=== PATIENT | female | born 1995 | race Hispanic/Latino ===

== ENCOUNTER 2017-10-05 12:48 | Emergency (ER) | payer OTHER ==
[2017-10-05 13:32] VITALS: O2SAT 99
[2017-10-05] MEDS ORDERED: Sodium Chloride 0.9% 1,000 ML IV STA (14:15)
[2017-10-05] MEDS ORDERED: DiphenhydrAMINE 50 mg/ml Inj IVP STA (14:16)
--- NOTE | 2017-10-05 14:20 | ED PDOC ---
HPI: Headache Time Seen by Provider: 10/05/17 14:17 Chief Complaint (Nursing): Headache Chief Complaint (Provider): Headache History Per: Patient History/Exam Limitations: no limitations Onset/Duration Of Symptoms: Days (x7) Current Symptoms Are (Timing): Still Present Associated Symptoms: Photophobia, Nausea. denies: Vomiting Additional Complaint(s): 22 year old female with a PMHx of migraines presents to the ED complaining of left sided headache associated with photophobia, hypersensitivity to sound, and intermittent nausea. Denies vomiting, fever, and history of head injury. PMD: Derek Hwang Past Medical History Reviewed: Historical Data, Nursing Documentation, Vital Signs Vital Signs: Last Vital Signs Temp Pulse 90 10/05/17 13:27 Resp 18 10/05/17 13:27 BP 138/88 10/05/17 13:27 Pulse Ox 99 10/05/17 13:27 - Medical History PMH: Migraine - Surgical History Surgical History: No Surg Hx - Family History Family History: States: Unknown Family Hx - Home Medications Home Medications: Ambulatory Orders Medication Instructions Recorded Citalopram [celeXA] 40 mg PO DAILY 09/10/17 Topiramate [Topamax] 50 mg PO DAILY 09/10/17 SUMAtriptan [Imitrex] 25 mg PO DAILY #6 tab 10/05/17 - Allergies Allergies/Adverse Reactions: Allergies Allergy/AdvReac Type Severity Reaction Status Date / Time amoxicillin [From Augmentin] Allergy Verified 09/10/17 21:30 clarithromycin [From Biaxin] Allergy Verified 09/10/17 21:30 clavulanic acid Allergy Verified 09/10/17 21:30 [From Augmentin] Review of Systems ROS Statement: Except As Marked, All Systems Reviewed And Found Negative Constitutional: Positive for: Other. Negative for: Fever Gastrointestinal: Positive for: Nausea (intermittent ). Negative for: Vomiting Neurological: Positive for: Headache, Other (photophobia, hypersensitivity to light) Physical Exam - Reviewed Nursing Documentation Reviewed: Yes Vital Signs Reviewed: Yes - Physical Exam Appears: Positive for: Non-toxic, No Acute Distress Head Exam: Positive for: ATRAUMATIC, NORMAL INSPECTION (no temporal tenderness) , NORMOCEPHALIC Skin: Positive for: Normal Color, Warm, Dry Eye Exam: Positive for: Normal appearance, EOMI, PERRL ENT: Positive for: Normal ENT Inspection Neck: Positive for: Normal, Supple Cardiovascular/Chest: Positive for: Regular Rate, Rhythm. Negative for: Murmur Respiratory: Positive for: Normal Breath Sounds. Negative for: Respiratory Distress Gastrointestinal/Abdominal: Positive for: Normal Exam, Soft. Negative for: Tenderness Back: Positive for: Normal Inspection. Negative for: L CVA Tenderness, R CVA Tenderness, Vertebral Tenderness Extremity: Positive for: Normal ROM. Negative for: Pedal Edema, Deformity Neurologic/Psych: Positive for: Alert (awake), Oriented (x3). Negative for: Motor/Sensory Deficits, Other (focal deficits) - Laboratory Results Result Diagrams: 10/05/17 14:15 10/05/17 14:15 - ECG O2 Sat by Pulse Oximetry: 99 (RA) Pulse Ox Interpretation: Normal - Progress Re-evaluation Time: 17:01 Condition: Improved (Headache gone) Medical Decision Making Medical Decision Making: Time: 1415 Plan: -- CMP -- ED Urine -- CBC with differentials -- Zofram 4 mg IVP -- Toradol 30 mg IVP -- Sodium Chloride IV 150 mls/hr -- Benadryl 50 mg IVP Scribe Attestation: Documented by Prachi Grissom, acting as a scribe for Dr. Marvel Martino MD. Provider Scribe Attestation: All medical record entries made by the Scribe were at my direction and personally dictated by me. I have reviewed the chart and agree that the record accurately reflects my personal performance of the history, physical exam, medical decision making, and the department course for this patient. I have also personally directed, reviewed, and agree with the discharge instructions and disposition. Disposition - Clinical Impression Clinical Impression: Migraine - Patient ED Disposition Is Patient to be Admitted: No - Disposition Referrals: Lorena Lockett MD [Medical Doctor] - Disposition: Routine/Home Disposition Time: 17:02 Condition: FAIR Prescriptions: SUMAtriptan [Imitrex] 25 mg PO DAILY #6 tab Instructions: Migraine Headaches in Adults Forms: [facility] (Portuguese)
[2017-10-05] MEDS ORDERED: DiphenhydrAMINE 50 mg/ml Inj ONE (14:49)
[2017-10-05 14:55] LABS: BASO # 0.1 K/uL (0.0-0.2); BASO % 0.7 % (0.0-2.0); EOS # 0.1 K/uL (0.0-0.7); EOS % 1.3 % (0.0-4.0); HEMOGLOBIN 12.8 g/dL (12.0-16.0); LYMPH # 2.9 K/uL (1.0-4.3); LYMPH % 30.2 % (20.0-40.0); MEAN CORPUSCULAR HEMOGLOBIN 30.5 pg (27.0-31.0); MEAN CORPUSCULAR HGB CONC 34.7 g/dL (33.0-37.0); MEAN PLATELET VOLUME 7.5 fl (7.2-11.7); MONO # 0.6 K/uL (0.0-0.8); MONO % 6.6 % (0.0-10.0); NEUT # 5.9 K/uL (1.8-7.0); NEUT % 61.2 % (50.0-75.0); NRBC % 0.1 % (0.0-0.0); RBC 4.19 Mil/uL (3.80-5.20); RED CELL DISTRIBUTION WIDTH 13.2 % (11.5-14.5); WHITE BLOOD COUNT 9.7 K/uL (4.8-10.8)
[2017-10-05 15:02] LABS: ALB/GLOB RATIO 1.2 (1.0-2.1); ALBUMIN 3.8 g/dL (3.5-5.0); ALT/SGPT 24 U/L (9-52); AST/SGOT 31 U/L (14-36); BLOOD UREA NITROGEN 13 mg/dl (7-17); CALCIUM 9.5 mg/dL (8.4-10.2); GFR AFRICAN-AMERICAN > 60; GFR NON-AFRICAN AMERICAN > 60
[2017-10-05 17:46] VITALS: BP 130/79; PULSE 76; RESP 16; TEMP 97.9
== END 2017-10-05 17:40 | disposition home or self-care (01) ==
LOC: H.ER 12:48
DX: G43.909 Migraine, unspecified, not intractable, without status migrainosus (principal); Z88.0 Allergy status to penicillin
CPT/HCPCS: 80053; 81025; 85025; 96372; 96374; 96375; 99285; J1200; J1885; J3030; J7030

== ENCOUNTER 2017-11-22 12:45 | Inpatient (IN) | payer OTHER ==
[2017-11-22] MEDS ORDERED: Sodium Chloride 0.9% 1,000 ML IV STA ×2 (13:39→15:22)
--- NOTE | 2017-11-22 13:41 | ED PDOC ---
HPI: Headache Time Seen by Provider: 11/22/17 13:16 Chief Complaint (Nursing): Headache Chief Complaint (Provider): Headache History Per: Patient Additional Complaint(s): 22 year old female with a PMHx of migraines presents to the ED complaining of left sided headache associated with photophobia, hypersensitivity to sound, and intermittent nausea. Denies vomiting, fever, and history of head injury. Pt reports taking Topamax 150 mg without relief, also, Excedrine Migraine. PMD: Dr. Milner, Neuro: Dr. Mcdaniel Past Medical History Reviewed: Nursing Documentation, Vital Signs Vital Signs: Last Vital Signs Temp 98.5 F 11/22/17 12:56 Pulse Resp 97 H 11/22/17 12:56 BP 119/77 11/22/17 12:56 Pulse Ox 20 L 11/22/17 12:56 - Medical History PMH: Migraine - Family History Family History: States: Unknown Family Hx - Living Arrangements Living Arrangements: With Family - Social History Current smoker - smoking cessation education provided: No Alcohol: Social Drugs: Denies - Home Medications Home Medications: Ambulatory Orders Medication Instructions Recorded Citalopram [celeXA] 40 mg PO DAILY 09/10/17 Topiramate [Topamax] 100 mg PO HS 09/10/17 Metoclopramide [Reglan] 1 tab PO TID PRN #25 tab 11/12/17 SUMAtriptan [Imitrex] 5 mg NS DAILY 11/12/17 Topiramate [Topamax] 50 mg PO DAILY 11/12/17 - Allergies Allergies/Adverse Reactions: Allergies Allergy/AdvReac Type Severity Reaction Status Date / Time amoxicillin [From Augmentin] Allergy RASH Verified 11/22/17 12:54 clarithromycin [From Biaxin] Allergy RASH Verified 11/22/17 12:54 clavulanic acid Allergy RASH Verified 11/22/17 12:54 [From Augmentin] Review of Systems ROS Statement: Except As Marked, All Systems Reviewed And Found Negative Neurological: Positive for: Headache Physical Exam - Reviewed Nursing Documentation Reviewed: Yes Vital Signs Reviewed: Yes - Physical Exam Appears: Positive for: Non-toxic, No Acute Distress, Uncomfortable Head Exam: Positive for: ATRAUMATIC, NORMAL INSPECTION, NORMOCEPHALIC Skin: Positive for: Normal Color, Warm, DRY Eye Exam: Positive for: EOMI, Normal appearance, PERRL ENT: Positive for: Normal ENT Inspection Neck: Positive for: Normal, Painless ROM Cardiovascular/Chest: Positive for: Regular Rate, Rhythm Respiratory: Positive for: CNT, Normal Breath Sounds Gastrointestinal/Abdominal: Positive for: Normal Exam, Soft Back: Positive for: Normal Inspection Extremity: Positive for: Normal ROM Neurologic/Psych: Positive for: Alert, Oriented - ECG O2 Sat by Pulse Oximetry: 20 Medical Decision Making Medical Decision Making: IVaccess established and treatment initiated ith IVF, Toradol and Zofran. No relief obtained. Therapeutic Recreation Director contacted Pt's neurologist, Dr. Mcdaniel, who advised Depakote, Mag Sulfate and Decadron drug regimen. Pt without relief on re-eval. Dr. Mcdaniel contacted and case discussed. Admission advised that this time for Ketamine infusion. Dr. Eldridge contacted and case discussed. Pt admitted to medical service. Dr. Mcdaniel on consult. Disposition - Clinical Impression Clinical Impression: Chronic migraine - Patient ED Disposition Is Patient to be Admitted: Yes - Disposition Disposition Time: 16:59 Condition: STABLE Forms: [employer] (Maori)
[2017-11-22] MEDS ORDERED: Divalproex 500 mg ER (ONCE DAILY formulation) PO STA (14:31)
[2017-11-22] MEDS ORDERED: Dexamethasone 10 MG in Sodium Chloride 0.9% 50 ML IV ONE (14:31)
[2017-11-22] MEDS ORDERED: Magnesium Sulfate 2 gm/50 ml 2 GM/50 ML BAG IV ONE (14:45)
[2017-11-22] MEDS: Magnesium Sulfate 1 GM in Dextrose 5% In Water 100 ML IV SCH ×2 (15:26→16:05)
[2017-11-22 17:14] LABS: BASO # 0.1 K/uL (0.0-0.2); BASO % 0.5 % (0.0-2.0); EOS # 0.1 K/uL (0.0-0.7); EOS % 0.7 % (0.0-4.0); HEMOGLOBIN 12.8 g/dL (12.0-16.0); LYMPH # 1.6 K/uL (1.0-4.3); LYMPH % 12.3 % (20.0-40.0); MEAN CELL VOLUME 88.7 fl (81.0-99.0); MEAN CORPUSCULAR HEMOGLOBIN 29.9 pg (27.0-31.0); MEAN CORPUSCULAR HGB CONC 33.7 g/dL (33.0-37.0); MEAN PLATELET VOLUME 7.5 fl (7.2-11.7); MONO # 0.3 K/uL (0.0-0.8); MONO % 2.6 % (0.0-10.0); NEUT # 10.7 K/uL (1.8-7.0); NEUT % 83.9 % (50.0-75.0); NRBC % 0.1 % (0.0-0.0); RBC 4.28 Mil/uL (3.80-5.20); RED CELL DISTRIBUTION WIDTH 13.1 % (11.5-14.5); WHITE BLOOD COUNT 12.8 K/uL (4.8-10.8)
[2017-11-22 17:23] LABS: ALB/GLOB RATIO 1.4 (1.0-2.1); ALBUMIN 4.1 g/dL (3.5-5.0); ALT/SGPT 36 U/L (9-52); AST/SGOT 29 U/L (14-36); BLOOD UREA NITROGEN 10 mg/dl (7-17); CALCIUM 8.9 mg/dL (8.4-10.2); GFR AFRICAN-AMERICAN > 60; GFR NON-AFRICAN AMERICAN > 60
--- NOTE | 2017-11-22 18:01 | CP.PCM.CON ---
History of Present Illness - History of Present Illness History of Present Illness: 22 year old female being admitted to ICU, for 24 H infusion of ketamine for intractable migraine prescribed by her neurologist. Patient has h/o migraine for 6-7 years and has been on multiple meds before. Presents to the ED complaining of left sided headache associated with photophobia, hypersensitivity to sound, and intermittent nausea. Denies vomiting, fever, and history of head injury. Pt reports taking Topamax 150 mg without relief, also, Excedrine Migraine. Saw the patient in ER, she is alert, awake, looks comfortable and eating her dinner. ketamine has not bee started yet. Review of Systems - Constitutional Constitutional: Headache - EENT Eyes: Photophobia Nose/Mouth/Throat: As Per HPI - Cardiovascular Cardiovascular: As Per HPI - Respiratory Respiratory: As Per HPI - Gastrointestinal Gastrointestinal: Nausea - Integumentary Integumentary: As Per HPI Past Patient History - Past Social History Alcohol: Social Drugs: Denies - NEUROLOGICAL Hx Migraine: Yes - MUSCULOSKELETAL/RHEUMATOLOGICAL Hx Musculoskeletal Disorders: Yes (Balbir Danlos) - GASTROINTESTINAL Hx Gastrointestinal Disorders: Yes Other/Comment: gastroporsis. ellers danilers syndrome - GENITOURINARY/GYNECOLOGICAL Hx Genitourinary Disorders: No - PSYCHIATRIC Hx Psychophysiologic Disorder: No - SURGICAL HISTORY Hx Surgeries: No - ANESTHESIA Hx Anesthesia: No Meds Allergies/Adverse Reactions: Allergies Allergy/AdvReac Type Severity Reaction Status Date / Time amoxicillin [From Augmentin] Allergy RASH Verified 11/22/17 12:54 clarithromycin [From Biaxin] Allergy RASH Verified 11/22/17 12:54 clavulanic acid Allergy RASH Verified 11/22/17 12:54 [From Augmentin] - Medications Medications: Current Medications Sodium Chloride (Sodium Chloride 0.9%) 1,000 mls @ 125 mls/hr IV .Q8H STA Stop: 11/22/17 23:21 Last Admin: 11/22/17 15:33 Dose: 125 mls/hr Physical Exam - Head Exam Head Exam: ATRAUMATIC - Eye Exam Pupil Exam: PERRL - ENT Exam ENT Exam: Mucous Membranes Moist - Neck Exam Neck exam: Positive for: Full Rom - Respiratory Exam Respiratory Exam: NORMAL BREATHING PATTERN - Cardiovascular Exam Cardiovascular Exam: REGULAR RHYTHM - GI/Abdominal Exam GI & Abdominal Exam: Soft Results - Vital Signs Recent Vital Signs: Last Vital Signs Temp 98.5 F 11/22/17 17:32 Pulse Resp 97 H 11/22/17 17:32 BP 119/77 11/22/17 17:32 Pulse Ox 20 L 11/22/17 16:59 - Labs Result Diagrams: 11/22/17 17:06 11/22/17 17:06 Labs: Laboratory Results - last 24 hr 11/22/17 11/22/17 17:06 17:06 WBC 12.8 H RBC 4.28 Hgb 12.8 Hct 38.0 MCV 88.7 MCH 29.9 MCHC 33.7 RDW 13.1 Plt Count 287 MPV 7.5 Neut % (Auto) 83.9 H Lymph % (Auto) 12.3 L [place] % (Auto) 2.6 Eos % (Auto) 0.7 Baso % (Auto) 0.5 Neut # (Auto) 10.7 H Lymph # (Auto) 1.6 [place] # (Auto) 0.3 Eos # (Auto) 0.1 Baso # (Auto) 0.1 Sodium 140 Potassium 3.8 Chloride 109 H Carbon Dioxide 19 L Anion Gap 16 BUN 10 Creatinine 0.8 Est GFR ( Amer) > 60 Est GFR (Non-Af Amer) > 60 Random Glucose 94 Calcium 8.9 Total Bilirubin 0.3 AST 29 ALT 36 Alkaline Phosphatase 85 Total Protein 7.2 Albumin 4.1 Globulin 3.1 Albumin/Globulin Ratio 1.4 Assessment & Plan - Assessment and Plan (Free Text) Assessment: Intractable headache, migraine Anxiety Plan: Pt to be admitted to ICU for 24 H infusion of Ketamine and close monitoring of her vitals and rhythm . Orders will be given by neurologist continue home meds Patient basic, labs reviewed, all WNL, vitals stable
--- NOTE | 2017-11-22 20:01 | CP.PCM.CON ---
History of Present Illness - History of Present Illness History of Present Illness: Neurology Consultation Note: Ms. Sahu is a 22-year-old woman with a past medical history of migraine headaches, ovarian cysts (on BC) and depression who I know well from the outpatient setting, and presented to the ED today with intractable migraine headache. She has had a persistent migraine that is resistant to triptans, decadron, depakote, magnesium sulfate, etc. It has been ongoing for the last 10 days and seems to be getting worse. Review of Systems - Review of Systems All systems: reviewed and no additional remarkable complaints except Past Patient History - Past Social History Alcohol: Social Drugs: Denies - NEUROLOGICAL Hx Migraine: Yes - MUSCULOSKELETAL/RHEUMATOLOGICAL Hx Musculoskeletal Disorders: Yes (Balbir Danlos) - GASTROINTESTINAL Hx Gastrointestinal Disorders: Yes Other/Comment: gastroporsis. ellers danilers syndrome - GENITOURINARY/GYNECOLOGICAL Hx Genitourinary Disorders: No - PSYCHIATRIC Hx Psychophysiologic Disorder: No - SURGICAL HISTORY Hx Surgeries: No - ANESTHESIA Hx Anesthesia: No Meds Allergies/Adverse Reactions: Allergies Allergy/AdvReac Type Severity Reaction Status Date / Time amoxicillin [From Augmentin] Allergy RASH Verified 11/22/17 12:54 clarithromycin [From Biaxin] Allergy RASH Verified 11/22/17 12:54 clavulanic acid Allergy RASH Verified 11/22/17 12:54 [From Augmentin] - Medications Medications: Current Medications Sodium Chloride (Sodium Chloride 0.9%) 1,000 mls @ 125 mls/hr IV .Q8H STA Stop: 11/22/17 23:21 Last Admin: 11/22/17 15:33 Dose: 125 mls/hr Physical Exam - Neurological Exam Neurological exam: Alert, CN II-XII Intact, Normal Gait, Oriented x3, Reflexes Normal Results - Vital Signs Recent Vital Signs: Last Vital Signs Temp 98.5 F 11/22/17 18:14 Pulse 92 H 11/22/17 18:14 Resp 18 11/22/17 18:14 BP 126/72 11/22/17 18:14 Pulse Ox 100 11/22/17 18:14 - Labs Result Diagrams: 11/22/17 17:06 11/22/17 17:06 Labs: Laboratory Results - last 24 hr 11/22/17 11/22/17 17:06 17:06 WBC 12.8 H RBC 4.28 Hgb 12.8 Hct 38.0 MCV 88.7 MCH 29.9 MCHC 33.7 RDW 13.1 Plt Count 287 MPV 7.5 Neut % (Auto) 83.9 H Lymph % (Auto) 12.3 L [place] % (Auto) 2.6 Eos % (Auto) 0.7 Baso % (Auto) 0.5 Neut # (Auto) 10.7 H Lymph # (Auto) 1.6 [place] # (Auto) 0.3 Eos # (Auto) 0.1 Baso # (Auto) 0.1 Sodium 140 Potassium 3.8 Chloride 109 H Carbon Dioxide 19 L Anion Gap 16 BUN 10 Creatinine 0.8 Est GFR ( Amer) > 60 Est GFR (Non-Af Amer) > 60 Random Glucose 94 Calcium 8.9 Total Bilirubin 0.3 AST 29 ALT 36 Alkaline Phosphatase 85 Total Protein 7.2 Albumin 4.1 Globulin 3.1 Albumin/Globulin Ratio 1.4 Assessment & Plan (1) Status migrainosus Assessment and Plan: The patient has been refractory to multiple attempts at therapy. I recommend admission and initiating ketamine infusion as follows: start with 0.2 mg/kg/hr and titrate up by 0.1 mg/kg/hr every two hours up to a maximum of 0.5 mg/kg/hr. The infusion will be planned to run for about 14 hours. If the patient has hallucinations or becomes uncomfortable, we can stop. If this does not help, then we will consider lumbar puncture tomorrow for possible underlying elevated ICP. Will continue Topamax at 100 mg daily (decreasing from 150 mg daily). Will hold Celexa tonight. Start propranolol 40 mg Q12. Thank you. Status: Acute Priority: High
[2017-11-22] MEDS ORDERED: Ketamine 50 mg/ml Inj (10 ml) IV SCH (20:15)
[2017-11-22] MEDS ORDERED: Ketamine 500 MG in Sodium Chloride 0.9% 500 ML IV SCH (22:30)
[2017-11-23 00:59] VITALS: BMI 31.5
[2017-11-23 05:51] LABS: BASO % 0.1 % (0.0-2.0); HEMOGLOBIN 12.6 g/dL (12.0-16.0); LYMPH # 1.5 K/uL (1.0-4.3); LYMPH % 9.9 % (20.0-40.0); MEAN CELL VOLUME 89.3 fl (81.0-99.0); MEAN CORPUSCULAR HEMOGLOBIN 29.4 pg (27.0-31.0); MEAN PLATELET VOLUME 8.1 fl (7.2-11.7); MONO # 0.4 K/uL (0.0-0.8); NEUT # 12.9 K/uL (1.8-7.0); PLATELET COUNT 339 K/uL (130-400); RBC 4.29 Mil/uL (3.80-5.20); RED CELL DISTRIBUTION WIDTH 13.2 % (11.5-14.5); WHITE BLOOD COUNT 14.8 K/uL (4.8-10.8)
[2017-11-23 06:10] LABS: ALB/GLOB RATIO 1.4 (1.0-2.1); ALBUMIN 4.3 g/dL (3.5-5.0); ALT/SGPT 26 U/L (9-52); AST/SGOT 27 U/L (14-36); BLOOD UREA NITROGEN 10 mg/dl (7-17); CALCIUM 9.6 mg/dL (8.4-10.2); GFR AFRICAN-AMERICAN > 60; GFR NON-AFRICAN AMERICAN > 60
[2017-11-23 07:42] LABS: ACANTHOCYTES SLIGHT; ANISOCYTOSIS SLIGHT; HYPOCHROMIC SLIGHT; LYMPHOCYTE 9 % (20-50); MONOCYTE 4 % (0-10); NEUTROPHIL 87 % (42-75); PLATELET ESTIMATE NORMAL (NORMAL); TOTAL CELLS COUNTED 100
--- NOTE | 2017-11-23 08:51 | CP.PCM.PN ---
Subjective - Date & Time of Evaluation Date of Evaluation: 11/23/17 Time of Evaluation: 08:43 - Subjective Subjective: Ms. Sahu was seen and examined at the bedside in ICU. She is alert, oriented in all spheres. She claims of the headache is gone but the pressure in her left eye is still there. She further describes the feeling of fogginess in her head and the area of eye pressure is much smaller than form admission. She further states of placing a mild pressure in her left eye relieves the pain.She remains on ketamine drip at 0.6 mg/kg/hr. There is no hallucinations noted. She further claims of having nasal congestion, no coughing noted. The staff explained to the patient that LP will be done today, verbalizes understanding. Objective - Vital Signs/Intake and Output Vital Signs (last 24 hours): Temp Pulse Resp BP Pulse Ox 97.8 F 78 17 130/80 97 11/23/17 00:00 11/23/17 06:00 11/23/17 06:00 11/23/17 06:00 11/23/17 06:00 Intake and Output: 11/23/17 11/23/17 06:59 18:59 Intake Total 241 Balance 241 - Medications Medications: Current Medications Ketamine HCl 500 mg/ Sodium (Chloride) 510 mls @ 17.2 mls/hr IV DAILY [facility] PRN Reason: Protocol Stop: 11/23/17 08:59 Last Admin: 11/22/17 22:47 Dose: 17.2 mls/hr Propranolol HCl (Inderal) 40 mg PO BID [facility] Last Admin: 11/22/17 22:05 Dose: 40 mg Topiramate (Topamax) 100 mg PO DAILY [facility] - Labs Labs: 11/23/17 04:25 11/23/17 04:25 - Constitutional Appears: No Acute Distress - Head Exam Head Exam: NORMAL INSPECTION - Neurological Exam Neurological Exam: Alert, Awake, Oriented x3 Neuro motor strength exam: Left Upper Extremity: 4, Right Upper Extremity: 4, Left Lower Extremity: 4, Right Lower Extremity: 4 Additional comments: alert,awake, moves all extremities and ambulates within her room. Assessment and Plan (1) Status migrainosus Assessment & Plan: Case discussed with Dr. Cueto, continue current medical regimen including Ketamine drip. Recommend LP for today, IF ICP is normal it is not a peudotumor or due to BC, however if ICP is normal maybe due to her use of BC, low dose of peudoephedrine 30 mg PO for 1 dose, hydration, hold BC for now until LP done. Status: Acute
--- NOTE | 2017-11-23 09:44 | CP.CCUPN ---
CCU Subjective - Physician Review Events Since Last Encounter (Free Text): 11/23/17 09:42 On Ketamine drip headache improved, still has pressure over left eye, no blurred vision neurology planning LP today, asked to hold lovenox today CCU Objective - Vital Signs / Intake & Output Vital Signs (Last 4 hours): Vital Signs Pulse Resp BP Pulse Ox 11/23/17 09:30 93 H 135/77 11/23/17 06:00 78 17 130/80 97 Intake and Output (Last 8hrs): Intake & Output 11/22/17 11/23/17 11/23/17 22:59 06:59 14:59 Intake Total 0 241 Balance 0 241 Weight 195 lb 8 oz Intake: IV 0 Intake, Piggyback 241 Other: # Voids Urine, Voided 2 - Physical Exam Narrative Physical Exam (Free Text): 11/23/17 09:43 P/E Neck: No JVD Lungs: no ronchi, crackles Abdomen: non-tender Ext: No edema Heart: no gallop - Medications Active Medications: Active Medications Generic Name Dose Route Start Last Admin Trade Name Freq PRN Reason Stop Dose Admin Propranolol HCl 40 mg 11/22/17 20:15 11/23/17 09:30 Inderal PO 40 mg BID MYKEL Administration Topiramate 100 mg 11/23/17 09:00 11/23/17 09:29 Topamax PO 100 mg DAILY MYKEL Administration - Patient Studies Lab Studies: Lab Studies 11/23/17 11/23/17 11/22/17 Range/Units 04:25 04:25 17:06 WBC 14.8 H (4.8-10.8) K/uL RBC 4.29 (3.80-5.20) Mil/uL Hgb 12.6 (12.0-16.0) g/dL Hct 38.4 (34.0-47.0) % MCV 89.3 (81.0-99.0) fl MCH 29.4 (27.0-31.0) pg MCHC 33.0 (33.0-37.0) g/dL RDW 13.2 (11.5-14.5) % Plt Count 339 (130-400) K/uL MPV 8.1 (7.2-11.7) fl Neut % (Auto) 87.0 H (50.0-75.0) % Lymph % (Auto) 9.9 L (20.0-40.0) % [place] % (Auto) 3.0 (0.0-10.0) % Eos % (Auto) 0.0 (0.0-4.0) % Baso % (Auto) 0.1 (0.0-2.0) % Neut # (Auto) 12.9 H (1.8-7.0) K/uL Lymph # (Auto) 1.5 (1.0-4.3) K/uL [place] # (Auto) 0.4 (0.0-0.8) K/uL Eos # (Auto) 0.0 (0.0-0.7) K/uL Baso # (Auto) 0.0 (0.0-0.2) K/uL Neutrophils % (Manual) 87 H (42-75) % Lymphocytes % (Manual) 9 L (20-50) % Monocytes % (Manual) 4 (0-10) % Platelet Estimate Normal (NORMAL) Hypochromasia (manual) Slight Anisocytosis (manual) Slight Acanthocytes (Spur) Slight Sodium 141 140 (132-148) mmol/l Potassium 4.0 3.8 (3.6-5.0) MMOL/L Chloride 111 H 109 H (98-107) mmol/L Carbon Dioxide 17 L 19 L (22-30) mmol/L Anion Gap 17 16 (10-20) BUN 10 10 (7-17) mg/dl Creatinine 0.8 0.8 (0.7-1.2) mg/dl Est GFR ( Amer) > 60 > 60 Est GFR (Non-Af Amer) > 60 > 60 Random Glucose 132 H 94 (65-105) mg/dL Calcium 9.6 8.9 (8.4-10.2) mg/dL Total Bilirubin 0.4 0.3 (0.2-1.3) mg/dl AST 27 29 (14-36) U/L ALT 26 36 (9-52) U/L Alkaline Phosphatase 73 85 (38-126) U/L Total Protein 7.4 7.2 (6.3-8.2) G/DL Albumin 4.3 4.1 (3.5-5.0) g/dL Globulin 3.2 3.1 (2.2-3.9) gm/dL Albumin/Globulin Ratio 1.4 1.4 (1.0-2.1) 07//18 Range/Units 17:06 WBC 12.8 H (4.8-10.8) K/uL RBC 4.28 (3.80-5.20) Mil/uL Hgb 12.8 (12.0-16.0) g/dL Hct 38.0 (34.0-47.0) % MCV 88.7 (81.0-99.0) fl MCH 29.9 (27.0-31.0) pg MCHC 33.7 (33.0-37.0) g/dL RDW 13.1 (11.5-14.5) % Plt Count 287 (130-400) K/uL MPV 7.5 (7.2-11.7) fl Neut % (Auto) 83.9 H (50.0-75.0) % Lymph % (Auto) 12.3 L (20.0-40.0) % [place] % (Auto) 2.6 (0.0-10.0) % Eos % (Auto) 0.7 (0.0-4.0) % Baso % (Auto) 0.5 (0.0-2.0) % Neut # (Auto) 10.7 H (1.8-7.0) K/uL Lymph # (Auto) 1.6 (1.0-4.3) K/uL [place] # (Auto) 0.3 (0.0-0.8) K/uL Eos # (Auto) 0.1 (0.0-0.7) K/uL Baso # (Auto) 0.1 (0.0-0.2) K/uL Neutrophils % (Manual) (42-75) % Lymphocytes % (Manual) (20-50) % Monocytes % (Manual) (0-10) % Platelet Estimate (NORMAL) Hypochromasia (manual) Anisocytosis (manual) Acanthocytes (Spur) Sodium (132-148) mmol/l Potassium (3.6-5.0) MMOL/L Chloride (98-107) mmol/L Carbon Dioxide (22-30) mmol/L Anion Gap (10-20) BUN (7-17) mg/dl Creatinine (0.7-1.2) mg/dl Est GFR ( Amer) Est GFR (Non-Af Amer) Random Glucose (65-105) mg/dL Calcium (8.4-10.2) mg/dL Total Bilirubin (0.2-1.3) mg/dl AST (14-36) U/L ALT (9-52) U/L Alkaline Phosphatase (38-126) U/L Total Protein (6.3-8.2) G/DL Albumin (3.5-5.0) g/dL Globulin (2.2-3.9) gm/dL Albumin/Globulin Ratio (1.0-2.1) Laboratory Results - last 24 hr 11/22/17 11/22/17 11/23/17 17:06 17:06 04:25 WBC 12.8 H 14.8 H RBC 4.28 4.29 Hgb 12.8 12.6 Hct 38.0 38.4 MCV 88.7 89.3 MCH 29.9 29.4 MCHC 33.7 33.0 RDW 13.1 13.2 Plt Count 287 339 MPV 7.5 8.1 Neut % (Auto) 83.9 H 87.0 H Lymph % (Auto) 12.3 L 9.9 L [place] % (Auto) 2.6 3.0 Eos % (Auto) 0.7 0.0 Baso % (Auto) 0.5 0.1 Neut # (Auto) 10.7 H 12.9 H Lymph # (Auto) 1.6 1.5 [place] # (Auto) 0.3 0.4 Eos # (Auto) 0.1 0.0 Baso # (Auto) 0.1 0.0 Neutrophils % (Manual) 87 H Lymphocytes % (Manual) 9 L Monocytes % (Manual) 4 Platelet Estimate Normal Hypochromasia (manual) Slight Anisocytosis (manual) Slight Acanthocytes (Spur) Slight Sodium 140 Potassium 3.8 Chloride 109 H Carbon Dioxide 19 L Anion Gap 16 BUN 10 Creatinine 0.8 Est GFR ( Amer) > 60 Est GFR (Non-Af Amer) > 60 Random Glucose 94 Calcium 8.9 Total Bilirubin 0.3 AST 29 ALT 36 Alkaline Phosphatase 85 Total Protein 7.2 Albumin 4.1 Globulin 3.1 Albumin/Globulin Ratio 1.4 11/23/17 04:25 WBC RBC Hgb Hct MCV MCH MCHC RDW Plt Count MPV Neut % (Auto) Lymph % (Auto) [place] % (Auto) Eos % (Auto) Baso % (Auto) Neut # (Auto) Lymph # (Auto) [place] # (Auto) Eos # (Auto) Baso # (Auto) Neutrophils % (Manual) Lymphocytes % (Manual) Monocytes % (Manual) Platelet Estimate Hypochromasia (manual) Anisocytosis (manual) Acanthocytes (Spur) Sodium 141 Potassium 4.0 Chloride 111 H Carbon Dioxide 17 L Anion Gap 17 BUN 10 Creatinine 0.8 Est GFR ( Amer) > 60 Est GFR (Non-Af Amer) > 60 Random Glucose 132 H Calcium 9.6 Total Bilirubin 0.4 AST 27 ALT 26 Alkaline Phosphatase 73 Total Protein 7.4 Albumin 4.3 Globulin 3.2 Albumin/Globulin Ratio 1.4 EKG/Cardiology Studies: Cardiology / EKG Studies 11/22/17 18:06 ELECTROCARDIOGRAM Stat Comment: Mode Of Transportation: Reason For Exam: med screening Critical Care Progress Note - Nutrition Nutrition: Nutrition Category Date Time Status Regular Diet [DIET] Diets 11/22/17 Breakfast Active Assessment/Plan - Assessment and Plan (Free Text) Assessment: Assessment : Intractable headache, Migraine refractory to other treatment so far, on ketamine GGT Plan: On ketamine GGT LP, planned for today , by neuro DVT: SCDs
[2017-11-23] MEDS ORDERED: acetaZOLAMIDE 500 mg SR Cap PO SCH (12:00)
--- NOTE | 2017-11-23 12:02 | PCM.PROC ---
Procedures Attestation:: I certify that I have explained the specified Operation(s) or Procedure(s), risks, benefits and reasonable alternatives to the Patient and/or other person responsible. The opportunity was given to ask questions and all questions answered - Lumbar Puncture Consent Obtained: Written Consent Time Out Performed: Yes Patient Position: Right Lateral [place]it[place] Skin Prep: 0.5% Chlorhexidine/Alcohol Local Anesthetic Used: Lidocaine 1% Spinal Needle Gauge: 20G Interspace Used: L4-L5 Opening Pressure (cmH2O): 27 Fluid Initially Obtained: Clear Complications: None
[2017-11-23] MEDS ORDERED: Dexamethasone 10 MG in Sodium Chloride 0.9% 50 ML IVPB STA (12:52)
[2017-11-23] MEDS ORDERED: Magnesium Sulfate 1 gm in D5W 1 GM/100 ML BAG IVPB STA (12:52)
[2017-11-23 12:58] VITALS: TEMP 98.7
[2017-11-23 13:15] LABS: FLUID TYPE SPINAL FLUID
[2017-11-23 13:54] LABS: CSF APPEARANCE CLEAR/COLORLESS (CLEAR); CSF VOLUME 2 mL (0-1)
--- NOTE | 2017-11-23 13:56 | CARD ---
APPROVED REPORT Date of service: 11/22/2017 EKG Measurement Heart [id number] <Conclusion> Normal sinus rhythm Normal ECG
[2017-11-23 14:21] LABS: CSF MONO/MACROPHAGE 0 % (0-0)
[2017-11-23 14:52] VITALS: BP 120/74; PULSE 87; RESP 14; O2SAT 98
[2017-11-24 00:23] LABS: SPECIMEN SOURCE FLUID
--- NOTE | 2017-11-24 23:40 | CP.PCM.HP ---
History of Present Illness - History of Present Illness History of Present Illness: This is a 22 y/o female admitted for intractable migraine headaches which did not respond to different forms of treatment. She had seen the Neurologist due to worsening of headaches and was started on different modes of treatment but to no avail hence was advised hospitalization for possible ketamine infusion.. Has a hx of ovarian cyst and depression. Present on Admission - Present on Admission Any Indicators Present on Admission: No History of DVT/PE: No History of Uncontrolled Diabetes: No Urinary Catheter: No Decubitus Ulcer Present: No Review of Systems - Psychiatric Psychiatric: Anxiety, Depression Past Patient History - Past Social History Smoking Status: Never Smoked - NEUROLOGICAL Hx Migraine: Yes - MUSCULOSKELETAL/RHEUMATOLOGICAL Hx Musculoskeletal Disorders: Yes (Balbir Danlos) Hx Falls: No - GASTROINTESTINAL Hx Gastrointestinal Disorders: Yes Other/Comment: gastroporsis. ellers danilers syndrome - GENITOURINARY/GYNECOLOGICAL Hx Genitourinary Disorders: No - PSYCHIATRIC Hx Psychophysiologic Disorder: No Hx Substance Use: No - SURGICAL HISTORY Hx Surgeries: No - ANESTHESIA Hx Anesthesia: No Meds Home Medications: Home Medication List Medication Instructions Recorded Confirmed Type Famotidine [Pepcid] 40 mg PO DAILY 30 Days tab 11/23/17 Rx Ibuprofen [Motrin Tab] 800 mg PO TID #30 tab 11/23/17 Rx acetaZOLAMIDE [Diamox Sequels 500 500 mg PO DAILY 30 Days cer 11/23/17 Rx mg SR Cap] Allergies/Adverse Reactions: Allergies Allergy/AdvReac Type Severity Reaction Status Date / Time amoxicillin [From Augmentin] Allergy RASH Verified 11/22/17 12:54 clarithromycin [From Biaxin] Allergy RASH Verified 11/22/17 12:54 clavulanic acid Allergy RASH Verified 11/22/17 12:54 [From Augmentin] Physical Exam - Eye Exam Eye Exam: Normal appearance - ENT Exam ENT Exam: Mucous Membranes Moist - Respiratory Exam Respiratory Exam: Clear to Auscultation Bilateral - Cardiovascular Exam Cardiovascular Exam: REGULAR RHYTHM - GI/Abdominal Exam GI & Abdominal Exam: Normal Bowel Sounds - Neurological Exam Neurological exam: CN II-XII Intact, Oriented x3 - Psychiatric Exam Psychiatric exam: Depressed Results - Vital Signs Recent Vital Signs: Last Vital Signs Temp 98.7 F 11/23/17 12:00 Pulse 87 11/23/17 14:00 Resp 14 11/23/17 14:00 BP 120/74 11/23/17 14:00 Pulse Ox 98 11/23/17 14:00 - Labs Result Diagrams: 11/23/17 04:25 11/23/17 04:25 Labs: Laboratory Results - last 24 hr 11/23/17 13:00 HSV Source Description Fluid Assessment & Plan (1) Intractable migraine Status: Acute (2) Depression Status: Acute - Assessment and Plan (Free Text) Plan: discussed with Neurology lumbar tap was performed send patient home on po meds andadvised follow up withNeuro.
== END 2017-11-23 16:20 | disposition home or self-care (01) | DRG 103 ==
LOC: H.ER 12:45 → H.ERHOLD 17:18 → H.ICU/CCU 18:45
PROVIDERS: ADMIT Family Medicine; ATTEND Family Medicine
PROC: 009U3ZX Drainage of Spinal Canal, Percutaneous Approach, Diagnostic (ICD-10-PCS; principal; 2017-11-22)
DX: G93.2 Benign intracranial hypertension (principal); Q79.6 Ehlers-Danlos syndromes; G43.911 Migraine, unspecified, intractable, with status migrainosus; F32.9 Major depressive disorder, single episode, unspecified; N83.209 Unspecified ovarian cyst, unspecified side; Z79.899 Other long term (current) drug therapy; H53.149 Visual discomfort, unspecified; H57.8 Other specified disorders of eye and adnexa; F41.9 Anxiety disorder, unspecified